=== PATIENT | female | born 1980 | race African-American/Black ===

== ENCOUNTER 2019-05-29 09:45 | Emergency (ER) | payer OTHER ==
[~2019-05-29] VITALS: Ht 162.6 cm; Wt 80.2 kg
[2019-05-29 09:48] VITALS: Ht 162.6 cm; Wt 80.2 kg
[2019-05-29 12:51] VITALS: BP 109/58; PULSE 61; RESP 18
--- NOTE | 2019-05-29 13:17 | ERD ---
ER Documentation Chief Complaint Chief Complaint pelvic pain yesterday, has not felt "baby pulling", 6 weeks HPI 39-year-old female presenting with pelvic pressure yesterday. Patient is about 6 weeks and states she did not feel her baby moving. She has diabetes and is concerned because she is a high risk . She has had no bleeding. A1. She is being seen at [facility]. Patient's LNMP was April 11. Medical history is diabetes. NKDA. Surgical history denies. Social history denies ROS All systems reviewed and are negative except as per history of present illness. Allergies Allergies: Coded Allergies: No Known Drug Allergies (Verified Allergy, Unknown, 05/29/19) PMhx/Soc History of Surgery: No Anesthesia Reaction: No Hx Respiratory Disorders: No Hx Cardiac Disorders: No Hx Psychiatric Problems: Yes (anxiety) Hx Miscellaneous Medical Probl: No Hx Alcohol Use: No Hx Substance Use: No Hx Tobacco Use: No FmHx Family History: No diabetes, No coronary disease, No other Physical Exam Vitals Vital Signs Date Temp Pulse Resp B/P (MAP) Pulse Ox O2 O2 Flow FiO2 Time Delivery Rate 05/29/19 98.5 61 18 109/58 100 Room Air 12:51 (75) 05/29/19 97.7 70 18 112/54 99 09:48 (73) Physical Exam GENERAL: The patient is well-appearing, well-nourished, in no acute distress HEENT: Atraumatic. Conjunctivae are pink. Pupils equal, round, and reactive to light. There is no scleral icterus. Tympanic membranes clear bilaterally. Oropharynx clear. CHEST: Clear to auscultation bilaterally. There are no rales, wheezes or rhonchi. HEART: Regular rate and rhythm. No murmurs, clicks, rubs or gallops. No S3 or S4. ABDOMEN:Soft, nontender and nondistended. Good bowel sounds. No rebound or guarding. No gross peritonitis. No gross organomegaly or masses. Result Diagram: 05/29/19 1032 Results 24 hrs Laboratory Tests Test 05/29/19 10:31 05/29/19 10:32 Urine Color YELLOW Urine Clarity CLEAR Urine pH 7.0 Urine Specific [place] 1.012 Urine Ketones TRACE mg/dL Urine Nitrite NEGATIVE mg/dL Urine Bilirubin NEGATIVE mg/dL Urine Urobilinogen NEGATIVE mg/dL Urine Leukocyte Esterase TRACE Mundo/ul Urine Microscopic RBC 1 /HPF Urine Microscopic WBC 2 /HPF Urine Hemoglobin 2+ mg/dL Urine Glucose 2+ mg/dL Urine Total Protein NEGATIVE mg/dl Beta HCG, Quantitative 40786.0 mIU/ml White Blood Count 4.3 10^3/ul Red Blood Count 5.01 10^6/ul Hemoglobin 14.0 g/dl Hematocrit 42.8 % Mean Corpuscular Volume 85.4 fl Mean Corpuscular Hemoglobin 27.9 pg Mean Corpuscular Hemoglobin Concent 32.7 g/dl Red Cell Distribution Width 12.0 % Platelet Count 223 10^3/UL Mean Platelet Volume 8.6 fl Immature Granulocytes % 0.000 % Neutrophils % 37.2 % Lymphocytes % 45.9 % Monocytes % 13.6 % Eosinophils % 2.8 % Basophils % 0.5 % Nucleated Red Blood Cells % 0.0 /100WBC Immature Granulocytes # 0.000 10^3/ul Neutrophils # 1.6 10^3/ul Lymphocytes # 2.0 10^3/ul Monocytes # 0.6 10^3/ul Eosinophils # 0.1 10^3/ul Basophils # 0.0 10^3/ul Nucleated Red Blood Cells # 0.0 10^3/ul Procedures/MDM DIAGNOSTIC IMAGING REPORT Patient: KAREN PETERS : 1980 Age: 39 Sex: F MR #: [id number] DOS: 05/29/19 1023 Ordering MD: CONSTANTINE LEMUS PA-C Location: [facility] Room/Bed: PROCEDURE: US OB. CLINICAL INDICATION: Pelvic pain TECHNIQUE: Transabdominal views of the pelvis are available for review. COMPARISON: No prior studies are available for comparison. FINDINGS: There is a single intrauterine gestation with the crown-rump length measuring 0.5 cm and the gestational sac measures 1.8 cm, corresponding to a gestational age of 6 weeks and 3 days. The heart rate is noted at 124 bpm. The ovaries are normal in size and echogenicity. Normal Doppler flow is identified in both ovaries. The right ovary measures 2.6 x 1.7 x 2.1 cm. The left ovary measures 2.9 x 1.6 x 1.6 cm. There is no free fluid. RPTAT: AA IMPRESSION: Single live intrauterine with an estimated gestational age of 6 weeks and 3 days, based on ultrasound measurements. JUAN MIGUEL based on ultrasound measurements is 01/19/20. MDM: 39-year-old female presenting with pelvic discomfort and concern for failed . Patient's ultrasound is within normal limits. Patient's blood work is within normal limits and patient's urine is stable. Patient is discharged with strict ER precautions and recommended to follow-up with primary care within 1 to 2 days for close evaluation. Patient is told symptoms change or worsen to return immediately to the ER. All questions answered at discharge Departure Diagnosis: Primary Impression: Condition: Stable Patient Instructions: , Established, Normal Symptoms Referrals: [facility] YOU HAVE RECEIVED A MEDICAL SCREENING EXAM AND THE RESULTS INDICATE THAT YOU DO NOT HAVE A CONDITION THAT REQUIRES URGENT TREATMENT IN THE EMERGENCY DEPARTMENT. FURTHER EVALUATION AND TREATMENT OF YOUR CONDITION CAN WAIT UNTIL YOU ARE SEEN IN YOUR DOCTORS OFFICE WITHIN THE NEXT 1-2 DAYS. IT IS YOUR RESPONSIBILITY TO MAKE AN APPOINTMENT FOR FOLOW-UP CARE. IF YOU HAVE A PRIMARY DOCTOR --you should call your primary doctor and schedule an appointment IF YOU DO NOT HAVE A PRIMARY DOCTOR YOU CAN CALL OUR PHYSICIAN REFERRAL HOTLINE AT IF YOU CAN NOT AFFORD TO SEE A PHYSICIAN YOU CAN CHOSE FROM THE FOLLOWING [facility] [address] [facility] [facility] [address] [facility] [facility] [address] [facility] [address] [facility] [address] [facility] [facility]. [address] Additional Instructions: FOLLOW UP WITH YOUR PRIMARY CARE PHYSICIAN TOMORROW.Return to this facility if you are not improving as expected. HEIDI LEMUS PA-C May 29, 2019 13:17
== END 2019-05-29 12:53 | disposition home or self-care (01) ==
LOC: FTE 09:45
DX: O26.891 Other specified pregnancy related conditions, first trimester (principal); R10.2 Pelvic and perineal pain; Z3A.01 Less than 8 weeks gestation of pregnancy
CPT/HCPCS: 76801; 81001; 84702; 85025; 86900; 86901; Z7502